=== PATIENT | female | born 1955 | race Hispanic/Latino ===

== ENCOUNTER 2021-07-06 20:07 | Emergency (ER) | payer SELFPAY ==
[2021-07-06 20:49] LABS: #Lymphocytes 0.6 thou/uL (1.20-3.40); #Monocytes 0.6 thou/uL (0.11-0.59); #Neutrophils 2.8 thou/uL (1.40-6.50); %Basophils 0.8 % (0.0-1.0); %Eosinophils 1.1 % (0.0-10.0); %Lymphocytes 15.5 % (21.0-51.0); %Neutrophils 68.6 % (42.0-75.0); Hemoglobin 14.3 g/dL (12.0-16.0); Mean Corpuscular HGB CONC 34.7 g/dL (32.0-36.0); Mean Corpuscular Hemoglobin 29.6 pg (27.0-31.0); Mean Corpuscular Volume 85.2 fL (78.0-98.0); Mean Platelet Volume 8.9 fL (7.4-10.4); Platelet Count 142 thou/uL (130-400); Red Blood Cell (RBC) Count 4.82 mill/uL (4.20-5.40); White Blood Cell (WBC) Count 4.1 thou/uL (4.8-10.8)
[2021-07-06 21:22] LABS: Albumin 3.7 g/dL (3.4-4.8)
[2021-07-06 21:23] LABS: Calcium 8.9 mg/dL (7.8-10.44); Chloride 103 mmol/L (98-107); Potassium 3.6 mmol/L (3.5-5.1); Sodium 137 mmol/L (136-145)
[2021-07-06 21:24] LABS: Globulin 3.1 g/dL (2.4-3.5); Glucose 115 mg/dL (80-115); Protein, Total 6.8 g/dL (5.8-8.1)
[2021-07-06 21:25] LABS: Carbon Dioxide 24 mmol/L (23-31)
[2021-07-06 21:26] LABS: Bilirubin, Total 0.8 mg/dL (0.2-1.2)
[2021-07-06 21:27] LABS: Alkaline Phosphatase 127 U/L (40-110)
[2021-07-06 21:28] LABS: BUN (Urea Nitrogen) 20 mg/dL (9.8-20.1); Calc. Creatinine Clearance 0 mL/min (70-130)
[2021-07-06 21:29] LABS: AST (SGOT) 95 U/L (5-34)
[2021-07-06 21:30] LABS: ALT (SGPT) 72 U/L (8-55)
[2021-07-06 21:54] LABS: Anion Gap 14 mmol/L (10-20)
[2021-07-06] MEDS ORDERED: Ondansetron PF 4 MG/2 ML Vial ONE (22:46)
[2021-07-06] MEDS ORDERED: Dexamethasone 10 MG/ML VIAL ONE (22:49)
== END 2021-07-06 23:51 | disposition home or self-care (01) ==
LOC: ERS 20:07
DX: U07.1 COVID-19 (principal)
CPT/HCPCS: 36415; 71045; 80053; 83880; 84484; 85025; 93005; 96374; 96375; J1100; J2405